=== PATIENT | female | born 1960 | race African-American/Black ===

== ENCOUNTER 2017-02-08 08:17 | Outpatient (CLI) | payer OTHER ==
[2017-02-08 09:43] LABS: Cardiac Risk 4.1 (Less than 4.5)
== END 2017-02-08 08:18 | disposition home or self-care (01) ==
LOC: NAV LAB 08:17
PROVIDERS: ATTEND Internal Medicine
DX: E78.5 Hyperlipidemia, unspecified (principal)
CPT/HCPCS: 36415; 80061

== ENCOUNTER 2018-07-25 09:28 | Emergency (ER) | payer OTHER ==
--- NOTE | 2018-07-25 10:18 | RAD ---
PA CHEST WITH 2 VIEWS LEFT SIDE RIBS: Date: 07/25/18 HISTORY: Chest injury. Left mid chest hit wooden chair. Injury to left chest after fall. Soreness with deep in spiration. COMPARISON: Chest x-ray on 01/14/17. FINDINGS: Cardiac silhouette and pulmonary vasculature are within normal limits for the portable technique of t he study. The lungs are clear. No pneumothorax or pleural effusion is evident. Degenerative changes a re noted in the spine. No left-sided rib fracture is visualized. Mild right convex curvature of the t horacic spine. Vascular calcifications seen in the thoracic aorta. IMPRESSION: 1. No acute cardiopulmonary process. 2. No left-sided rib fracture. 3. Slight right convex scoliosis thoracic spine. POS: [facility]
[2018-07-25] MEDS ORDERED: Ibuprofen 800 MG TAB ONE (10:21)
== END 2018-07-25 10:30 | disposition home or self-care (01) ==
LOC: NAV ERS 09:28
DX: S23.41XA Sprain of ribs, initial encounter (principal); I10 Essential (primary) hypertension; Z79.899 Other long term (current) drug therapy; W01.0XXA Fall on same level from slipping, tripping and stumbling without subsequent striking against object, initial encounter

== ENCOUNTER 2018-11-06 05:02 | Emergency (ER) | payer OTHER ==
[2018-11-06] MEDS ORDERED: Ondansetron PF 4 MG/2 ML Vial ONE (05:21)
[2018-11-06] MEDS ORDERED: Sodium Chloride 0.9% 0 ML ONE (05:21)
[2018-11-06] MEDS ORDERED: Sodium Chloride 0.9% 1,000 ML ONE (05:23)
[2018-11-06 05:37] LABS: #Basophils 0.1 thou/uL (0.0-0.2); #Lymphocytes 1.1 thou/uL (1.20-3.40); #Monocytes 0.2 thou/uL (0.11-0.59); #Neutrophils 3.1 thou/uL (1.40-6.50); %Basophils 1.6 % (0.0-1.0); %Eosinophils 0.1 % (0.0-10.0); %Lymphocytes 24.8 % (21.0-51.0); %Monocytes 4.8 % (0.0-10.0); %Neutrophils 68.7 % (42.0-75.0); Hemoglobin 12.2 g/dL (12.0-16.0); Mean Corpuscular HGB CONC 31.8 g/dL (32.0-36.0); Mean Corpuscular Hemoglobin 27.8 pg (27.0-31.0); Mean Corpuscular Volume 87.4 fL (78.0-98.0); Platelet Count 189 thou/uL (130-400); RBC Distribution Width 11.9 % (11.5-14.5); White Blood Cell (WBC) Count 4.6 thou/uL (4.8-10.8)
[2018-11-06 05:46] LABS: Anion Gap 12 mmol/L (10-20); BUN (Urea Nitrogen) 11 mg/dL (9.8-20.1); Calc. Creatinine Clearance 0 mL/min (70-130); Calcium 9.6 mg/dL (7.8-10.44); Carbon Dioxide 20 mmol/L (22-29); Chloride 105 mmol/L (98-107); Estimated GFR-MDRD Greater than 90; Glucose 170 mg/dL (70-105); Potassium 3.4 mmol/L (3.5-5.1); Sodium 134 mmol/L (136-145)
[2018-11-06 06:11] LABS: Bilirubin Negative (Negative); Blood, Urine Negative (Negative); Clarity Clear (Clear); Glucose, Urine (Dipstick) Negative (Negative); Leukocyte Negative (Negative); Nitrite Negative (Negative); Protein, Urine (Dipstick) Trace mg/dL (Neg-Trace); Urobilinogen 0.2 mg/dL (0.2-1.0)
== END 2018-11-06 06:35 | disposition home or self-care (01) ==
LOC: NAV ERS 05:02
DX: R11.2 Nausea with vomiting, unspecified (principal); I10 Essential (primary) hypertension; R19.7 Diarrhea, unspecified; Z79.899 Other long term (current) drug therapy
CPT/HCPCS: 80048; 81003; 84484; 85025; 93005; 96361; 96374; J2405; J7050

== ENCOUNTER 2020-01-07 08:55 | Outpatient (CLI) | payer OTHER ==
--- NOTE | 2020-01-07 09:20 | RAD ---
EXAM: 4 views of the right knee HISTORY: Knee pain COMPARISON: None FINDINGS: A small knee effusion is seen. There is no evidence of acute fracture or dislocation. Moder ate to severe tricompartmental degenerative changes are seen. No soft tissue swelling is present. IMPRESSION: Moderate to severe osteoarthritis without evidence of acute osseous abnormality.
== END 2020-01-07 08:56 | disposition home or self-care (01) ==
LOC: NAV RAD 08:55
PROVIDERS: ATTEND Internal Medicine
DX: M25.561 Pain in right knee (principal); M17.11 Unilateral primary osteoarthritis, right knee

== ENCOUNTER 2020-02-03 09:50 | Emergency (ER) | payer OTHER ==
[2020-02-03] MEDS ORDERED: predniSONE 20 MG TAB ONE (10:17)
== END 2020-02-03 10:30 | disposition home or self-care (01) ==
LOC: NAV ERS 09:50
DX: M17.11 Unilateral primary osteoarthritis, right knee (principal); I10 Essential (primary) hypertension; Z79.899 Other long term (current) drug therapy
CPT/HCPCS: 99283; J7512

== ENCOUNTER 2023-05-24 09:36 | Outpatient (CLI) | payer BC | END 2023-05-24 09:37 | disposition home or self-care (01) | LOC: NAV RAD 09:36 | PROVIDERS: ATTEND Family Medicine | DX: M77.51 Other enthesopathy of right foot and ankle (principal); M19.071 Primary osteoarthritis, right ankle and foot; M77.31 Calcaneal spur, right foot; M79.9 Soft tissue disorder, unspecified; M25.771 Osteophyte, right ankle ==